=== PATIENT | female | born 1945 | race Caucasian/White ===

== ENCOUNTER 2024-07-21 06:27 | Day surgery (SDC) | payer MEDICARE, OTHER, SELFPAY | END 2024-07-21 16:59 | disposition home or self-care (01) | LOC: GI 06:27 | PROVIDERS: ATTENDING PHYSICIAN Internal Medicine Gastroenterology | DX: Z12.11 Encounter for screening for malignant neoplasm of colon (principal); D12.5 Benign neoplasm of sigmoid colon; K57.30 Diverticulosis of large intestine without perforation or abscess without bleeding; D12.8 Benign neoplasm of rectum; K62.89 Other specified diseases of anus and rectum; Z86.0101 Personal history of adenomatous and serrated colon polyps | CPT/HCPCS: 45385; 45380; 88305 ==